=== PATIENT | female | born 1960 | race Caucasian/White ===

== ENCOUNTER 2019-12-15 07:29 | Day surgery (SDC) | payer MEDICAID, SELFPAY ==
[~2019-12-15] VITALS: Ht 172.7 cm; Wt 64.0 kg
[2019-12-15] MEDS ORDERED: DIPHENHYDRAMINE INJ 50 MG/ML VIAL ONE (08:54)
[2019-12-15] MEDS ORDERED: MIDAZOLAM HCL 5 MG/5 ML VIAL ONE (08:54)
[2019-12-15 10:15] VITALS: BP_SYST 111
== END 2019-12-15 10:59 | disposition still patient (30) ==
LOC: SDS 07:29 → SMU 07:31 → SDS 10:59
PROVIDERS: ATTEND Internal Medicine
DX: M53.3 Sacrococcygeal disorders, not elsewhere classified (principal); E11.9 Type 2 diabetes mellitus without complications; I10 Essential (primary) hypertension; M51.9 Unspecified thoracic, thoracolumbar and lumbosacral intervertebral disc disorder; G89.4 Chronic pain syndrome; Z79.84 Long term (current) use of oral hypoglycemic drugs; Z79.899 Other long term (current) drug therapy; Z79.82 Long term (current) use of aspirin
CPT/HCPCS: 27096; 82962; J1200; J2250; U0003; 76000

== ENCOUNTER 2020-04-12 08:24 | Day surgery (SDC) | payer MEDICAID, SELFPAY ==
[~2020-04-12] VITALS: Ht 172.7 cm; Wt 64.0 kg
[2020-04-12 11:29] VITALS: BP_SYST 139
[2020-04-12] MEDS ORDERED: DIPHENHYDRAMINE INJ 50 MG/ML VIAL ONE (14:28)
[2020-04-12] MEDS ORDERED: MIDAZOLAM HCL 5 MG/5 ML VIAL ONE (14:29)
== END 2020-04-12 12:18 | disposition home or self-care (01) ==
LOC: SDS 08:24 → SMU 08:26 → SDS 12:18
PROVIDERS: ATTEND Internal Medicine
DX: M53.3 Sacrococcygeal disorders, not elsewhere classified (principal); M51.9 Unspecified thoracic, thoracolumbar and lumbosacral intervertebral disc disorder; G89.4 Chronic pain syndrome; I10 Essential (primary) hypertension; E11.9 Type 2 diabetes mellitus without complications; Z79.84 Long term (current) use of oral hypoglycemic drugs; Z79.899 Other long term (current) drug therapy; Z20.828 Contact with and (suspected) exposure to other viral communicable diseases
CPT/HCPCS: 27096; 82962; 99152; J1200; J2250; U0003; 76000

== ENCOUNTER 2021-11-28 07:33 | Day surgery (SDC) | payer MEDICAID ==
[~2021-11-28] VITALS: Ht 175.3 cm; Wt 66.7 kg
[2021-11-28] MEDS ORDERED: MIDAZOLAM HCL 5 MG/5 ML VIAL ONE (08:39)
[2021-11-28] MEDS ORDERED: DIPHENHYDRAMINE INJ 50 MG/ML VIAL ONE (08:39)
[2021-11-28] MEDS ORDERED: ONDANSETRON HCL 4 MG/2 ML VIAL ONE (08:40)
[2021-11-28] MEDS ORDERED: fentaNYL CITRATE/PF 100 MCG/2 ML AMP ONE (08:40)
[2021-11-28 14:42] VITALS: BP_SYST 135
== END 2021-11-28 11:20 | disposition home or self-care (01) ==
LOC: SDS 07:33 → SMU 07:34 → SDS 11:20
PROVIDERS: ATTEND Internal Medicine
DX: M53.3 Sacrococcygeal disorders, not elsewhere classified (principal); M51.16 Intervertebral disc disorders with radiculopathy, lumbar region; G89.4 Chronic pain syndrome; I10 Essential (primary) hypertension; E11.9 Type 2 diabetes mellitus without complications; Z79.84 Long term (current) use of oral hypoglycemic drugs; Z79.899 Other long term (current) drug therapy; Z20.822 Contact with and (suspected) exposure to COVID-19
CPT/HCPCS: 36415; 27096; 82962; U0003; J1200; J2250; J2405; J3010; J7030; 76000

== ENCOUNTER 2022-04-03 08:15 | Day surgery (SDC) | payer MEDICAID ==
[~2022-04-03] VITALS: Ht 170.2 cm; Wt 65.8 kg
[2022-04-03] MEDS ORDERED: DIPHENHYDRAMINE INJ 50 MG/ML VIAL ONE (08:36)
[2022-04-03] MEDS ORDERED: fentaNYL CITRATE/PF 100 MCG/2 ML AMP ONE (08:36)
[2022-04-03] MEDS ORDERED: MIDAZOLAM HCL 5 MG/5 ML VIAL ONE (08:37)
[2022-04-03] MEDS ORDERED: BUPIVACAINE /PF 0.25% 30 ML VIAL INJ ONE (09:00)
[2022-04-03] MEDS ORDERED: methylPREDNISolone ACETATE 40 MG/ML ONE (09:00)
[2022-04-03] MEDS ORDERED: LIDOCAINE 2%, 20 ML MDV ONE (09:00)
[2022-04-03] MEDS ORDERED: NORMAL SALINE 10 ML VIAL ONE (09:00)
[2022-04-03] MEDS ORDERED: ISOVUE-300 (IOPAMIDOL) 100 ML INFUS..BTL IV ONE (09:00)
[2022-04-03] MEDS: MIDAZOLAM HCL 5 MG/5 ML VIAL ONE ×2 (10:55→10:58)
[2022-04-03 16:14] VITALS: BP_SYST 144
== END 2022-04-03 12:00 | disposition home or self-care (01) ==
LOC: SDS 08:15 → SMU 08:20 → SDS 12:00
PROVIDERS: ATTEND Internal Medicine
DX: M53.3 Sacrococcygeal disorders, not elsewhere classified (principal); M51.16 Intervertebral disc disorders with radiculopathy, lumbar region; G89.4 Chronic pain syndrome; I10 Essential (primary) hypertension; E11.9 Type 2 diabetes mellitus without complications; Z79.84 Long term (current) use of oral hypoglycemic drugs; Z79.899 Other long term (current) drug therapy; Z20.822 Contact with and (suspected) exposure to COVID-19
CPT/HCPCS: 36415; 27096; 82962; U0003; J3490; J1200; J2001; J1030; J2250; J3010; Q9967; 76000

== ENCOUNTER 2022-07-31 08:16 | Day surgery (SDC) | payer MEDICAID ==
[~2022-07-31] VITALS: Ht 170.2 cm; Wt 65.0 kg
[2022-07-31] MEDS ORDERED: MIDAZOLAM HCL 5 MG/5 ML VIAL ONE (08:51)
[2022-07-31] MEDS ORDERED: fentaNYL CITRATE/PF 100 MCG/2 ML AMP ONE (08:51)
[2022-07-31] MEDS ORDERED: DIPHENHYDRAMINE INJ 50 MG/ML VIAL ONE (08:52)
[2022-07-31] MEDS ORDERED: ONDANSETRON HCL 4 MG/2 ML VIAL ONE (08:52)
[2022-07-31] MEDS ORDERED: NORMAL SALINE 10 ML VIAL ONE (09:00)
[2022-07-31] MEDS ORDERED: BUPIVACAINE /PF 0.25% 30 ML VIAL INJ ONE (09:00)
[2022-07-31] MEDS ORDERED: LIDOCAINE 2%, 20 ML MDV ONE (09:00)
[2022-07-31] MEDS ORDERED: methylPREDNISolone ACETATE 40 MG/ML ONE (09:00)
[2022-07-31] MEDS ORDERED: ISOVUE-300 (IOPAMIDOL) 100 ML INFUS..BTL IV ONE (09:00)
[2022-08-01 12:43] VITALS: BP_SYST 135
== END 2022-07-31 12:55 | disposition home or self-care (01) ==
LOC: SDS 08:16 → SMU 08:17 → SDS 12:55
PROVIDERS: ATTEND Internal Medicine
DX: M53.3 Sacrococcygeal disorders, not elsewhere classified (principal); M51.16 Intervertebral disc disorders with radiculopathy, lumbar region; G89.4 Chronic pain syndrome; I10 Essential (primary) hypertension; E11.9 Type 2 diabetes mellitus without complications; Z79.899 Other long term (current) drug therapy
CPT/HCPCS: 27096; 82962; J3490; J1200; J2001; J1030; J2250; J3010; Q9967; 76000; J2405

== ENCOUNTER 2022-10-09 06:34 | Day surgery (SDC) | payer MEDICAID ==
[~2022-10-09] VITALS: Ht 154.9 cm; Wt 59.4 kg
[2022-10-09] MEDS ORDERED: DIPHENHYDRAMINE INJ 50 MG/ML VIAL ONE (07:53)
[2022-10-09] MEDS ORDERED: fentaNYL CITRATE/PF 100 MCG/2 ML AMP ONE (07:53)
[2022-10-09] MEDS ORDERED: ONDANSETRON HCL 4 MG/2 ML VIAL ONE (07:53)
[2022-10-09 09:20] VITALS: O2SAT 99
[2022-10-09] MEDS: MIDAZOLAM HCL 5 MG/5 ML VIAL ONE ×3 (09:28→09:34)
[2022-10-09 13:20] VITALS: BP_SYST 132; PULSE 77; RESP 18
== END 2022-10-09 10:35 | disposition home or self-care (01) ==
LOC: SDS 06:34 → SMU 06:35 → SDS 10:35
PROVIDERS: ATTEND Internal Medicine
DX: M53.3 Sacrococcygeal disorders, not elsewhere classified (principal); M51.16 Intervertebral disc disorders with radiculopathy, lumbar region; G89.4 Chronic pain syndrome; I10 Essential (primary) hypertension; E11.9 Type 2 diabetes mellitus without complications; Z79.84 Long term (current) use of oral hypoglycemic drugs; Z79.899 Other long term (current) drug therapy
CPT/HCPCS: 82962; 27096; J1200; J2250; J3010; 76000; J2405